=== PATIENT | female | born 1980 | race Caucasian/White ===

== ENCOUNTER 2025-03-31 01:52 | Emergency (ER) | payer SELFPAY ==
[2025-03-31 01:52] VITALS: BP 119/62; PULSE 81; RESP 13; TEMP 37.1; O2SAT 99; BMI 26.6
[2025-03-31 02:34] LABS: Add Manual Diff / Slide Review NO; Basophils Absolute Auto 0 /uL (0-100); Basophils Percent Auto 0.8 % (0-2); Eosinophils Absolute Auto 100 /uL (0-450); Eosinophils Percent Auto 4.4 % (2-4); Hematocrit 33.4 % (36-46); Hemoglobin 11.5 g/dL (12.0-16.0); Lymphocytes Absolute Auto 1100 /uL (1100-4500); Lymphocytes Percent Auto 37.3 % (25-40); Mean Corpuscular HGB Conc 34.5 % (30-36); Mean Corpuscular Hemoglobin 31.4 PG (26-34); Mean Corpuscular Volume 91.1 fL (80-100); Monocytes Absolute Auto 300 /uL (0-900); Monocytes Percent Auto 11.3 % (3-14); Neutrophils Absolute Auto 1400 /uL (1500-7000); Neutrophils Percent Auto 46.2 % (50-75); Platelet Count 99 X10^3/uL (150-400); Red Blood Cell Count 3.67 X10^6/uL (4.0-5.2); Red Cell Distribution Width 14.2 % (11.6-14.8); White Blood Cell Count 2.9 X10^3/uL (4.5-11.0)
[2025-03-31 02:50] LABS: Acetaminophen < 10 ug/mL (10-30); Alanine Aminotransferase 45 IU/L (<35); Albumin 3.4 g/dL (3.5-5.0); Albumin Globulin Ratio 1.3 (1.0-2.8); Alkaline Phosphatase 135 U/L (38-126); Aspartate Aminotransferase 62 IU/L (14-36); BUN Creatinine Ratio 21.2 (6-22); Bilirubin Total 1.3 mg/dL (0.2-1.3); Blood Urea Nitrogen 11 mg/dL (7-17); Calcium 8.6 mg/dL (8.4-10.2); Carbon Dioxide 26 mmol/L (22-32); Chloride 110 mmol/L (98-107); Estimated Glomerular Filt Rate > 60 mL/min (>60); Ethanol (ETOH) < 10 mg/dL; Globulin 2.7 g/dL (1.7-4.1); Glucose 110 mg/dL (70-99); HEMOLYSIS < 15 (0-50); Potassium 4.2 mmol/L (3.4-5.1); Salicylate < 1.0 mg/dL (<20); Sodium 138 mmol/L (137-145); Total Protein 6.1 g/dL (6.3-8.2)
[2025-03-31 03:09] LABS: UR Morphine/Opiate cutoff 300 Negative (Negative); Ur Creatinine Normal (Normal); Ur Specific Gravity Normal (Normal); Urine Amphetamines Negative (Negative); Urine Cocaine Negative (Negative); Urine Tetrahydrocannabinol Positive (Negative); Urine pH Normal (Normal)
[2025-03-31 03:10] LABS: Urine Barbiturates Negative (Negative); Urine Benzodiazepines Negative (Negative); Urine MDMA Negative (Negative); Urine Methadone Negative (Negative); Urine Methamphetamines Positive (Negative); Urine Oxycodone Negative (Negative); Urine Phencyclidine Negative (Negative); Urine Tricyclic Antidepressant Negative (Negative)
[2025-03-31 03:14] LABS: Pregnancy Test Urine Negative (Negative)
[2025-03-31 03:20] LABS: TSH w/ Reflex to FT4 3.73 uIU/mL (0.47-4.68)
--- NOTE | 2025-03-31 03:57 | ED_ITS ---
HPI - Psych <Jb Mcclelland MD - Last Filed: 03/31/25 16:30> General Chief Complaint: Psychiatric Symptoms Stated Complaint: SI Time Seen by Provider: 03/31/25 02:35 Source: patient Mode of arrival: EMS History of Present Illness HPI Narrative: 44-year-old female arrival by ambulance with suicidal ideation by report, would not offer any history when asked by me why she is here, seems to deny active thoughts of hurting herself, seems to deny thoughts of hurting others, seems to nod yes that she would like some kind of help but does not seem to provide any other information about what help she is seeking. Triage information mentions that she is homeless and having suicidal thoughts. No known ingestions, unclear if there was any drug use. No injuries known. Related Data Allergies Allergy/AdvReac Type Severity Reaction Status Date / Time No Known Drug Allergies Allergy Verified 03/31/25 02:22 Patient History <Jb Mcclelland MD - Last Filed: 03/31/25 16:30> Social History Smoking Status: Current some day smoker Smoking Status: Current some day smoker tobacco type: cigarettes Alcohol type: beer Exam <Jb Mcclelland MD - Last Filed: 03/31/25 16:30> Narrative Exam Narrative: GENERAL: Well-developed patient, in mild distress. HEAD: Atraumatic. Normocephalic. EYES: Pupils equal round and reactive. Extraocular motions intact. No scleral icterus. No injection or drainage. ENT: Nose without bleeding, purulent drainage. Throat without erythema, tonsillar hypertrophy or exudate. Airway patent. NECK: Trachea midline. Non tender CARDIOVASCULAR: Regular rate and rhythm, systolic murmur 3/6 best left upper sternal border, no gallops, or rubs. RESPIRATORY: Clear to auscultation. Breath sounds equal bilaterally. No wheezes, rales, or rhonchi. GASTROINTESTINAL: Abdomen soft, non-tender, nondistended. EXTREMITIES: No edema or joint tenderness. BACK: Nontender without deformity or crepitance. No flank tenderness. NEURO: Arousable, not particularly cooperative with examination, no obvious facial droop, moves extremities spontaneously but not to command. SKIN: No rash or erythema of visible areas Initial Vital Signs Initial Vital Signs: Vital Signs Temperature 98.7 F 03/31/25 01:52 Pulse Rate 81 03/31/25 01:52 Respiratory Rate 13 03/31/25 01:52 Blood Pressure 119/62 03/31/25 01:52 Pulse Oximetry 99 03/31/25 01:52 Oxygen Delivery Method Room Air 03/31/25 01:52 <Caroline John DO - Last Filed: 03/31/25 16:12> Initial Vital Signs Initial Vital Signs: Vital Signs Temperature 98.7 F 03/31/25 01:52 Pulse Rate 81 03/31/25 01:52 Respiratory Rate 13 03/31/25 01:52 Blood Pressure 119/62 03/31/25 01:52 Pulse Oximetry 99 03/31/25 01:52 Oxygen Delivery Method Room Air 03/31/25 01:52 Course <Jb Mcclelland MD - Last Filed: 03/31/25 16:30> Orders Ordered: ED Orders 03/31/25 02:20 Acetaminophen Stat Complete Blood Count AUTO DIFF Stat Comprehensive Metabolic Panel Stat Ethanol (ETOH) Stat Test Urine Stat Salicylate Stat TSH w/ Reflex to FT4 Stat Urine Culture Stat Urine Drug Screen, Rapid Stat Urine Microscopic Stat 03/31/25 02:24 Consult to [facility] [place] - Conservation Engineer Routine Vital Signs Vital signs: Vital Signs - 8 hr 03/31/25 11:38 03/31/25 12:22 Pulse Rate 80 76 Respiratory Rate 16 16 Blood Pressure 129/67 136/76 Pulse Oximetry 100 97 Oxygen Delivery Method Room Air Room Air <Caroline John DO - Last Filed: 03/31/25 16:12> Orders Ordered: ED Orders 03/31/25 02:20 Acetaminophen Stat Complete Blood Count AUTO DIFF Stat Comprehensive Metabolic Panel Stat Ethanol (ETOH) Stat Test Urine Stat Salicylate Stat TSH w/ Reflex to FT4 Stat Urine Culture Stat Urine Drug Screen, Rapid Stat Urine Microscopic Stat 03/31/25 02:24 Consult to [facility] - Conservation Engineer Routine Vital Signs Vital signs: Vital Signs - 8 hr 03/31/25 11:38 03/31/25 12:22 Pulse Rate 80 76 Respiratory Rate 16 16 Blood Pressure 129/67 136/76 Pulse Oximetry 100 97 Oxygen Delivery Method Room Air Room Air MDM - Psych <Jb Mcclelland MD - Last Filed: 03/31/25 16:30> Lab Data Attestation: I reviewed the patient's lab results. 03/31/25 02:20 03/31/25 02:20 Labs: Lab Results 03/31/25 Range/Units 02:20 WBC 2.9 L (4.5-11.0) X10^3/uL RBC 3.67 L (4.0-5.2) X10^6/uL Hgb 11.5 L (12.0-16.0) g/dL Hct 33.4 L (36-46) % MCV 91.1 (80-100) fL MCH 31.4 (26-34) PG MCHC 34.5 (30-36) % RDW 14.2 (11.6-14.8) % Plt Count 99 L (150-400) X10^3/uL Neut % (Auto) 46.2 L (50-75) % Lymph % (Auto) 37.3 (25-40) % [place] % (Auto) 11.3 (3-14) % Eos % (Auto) 4.4 H (2-4) % Baso % (Auto) 0.8 (0-2) % Neut # (Auto) 1400 L (0674-4303) /uL Lymph # (Auto) 1100 (2446-9385) /uL [place] # (Auto) 300 (0-900) /uL Eos # (Auto) 100 (0-450) /uL Baso # (Auto) 0 (0-100) /uL Sodium 138 (137-145) mmol/L Potassium 4.2 (3.4-5.1) mmol/L Chloride 110 H (98-107) mmol/L Carbon Dioxide 26 (22-32) mmol/L BUN 11 (7-17) mg/dL Creatinine 0.52 (0.52-1.04) mg/dL Estimated GFR > 60 (>60) mL/min BUN/Creatinine Ratio 21.2 (6-22) Glucose 110 H (70-99) mg/dL Calcium 8.6 (8.4-10.2) mg/dL Total Bilirubin 1.3 (0.2-1.3) mg/dL AST 62 H (14-36) IU/L ALT 45 H (<35) IU/L Alkaline Phosphatase 135 H (38-126) U/L Total Protein 6.1 L (6.3-8.2) g/dL Albumin 3.4 L (3.5-5.0) g/dL Globulin 2.7 (1.7-4.1) g/dL Albumin/Globulin Ratio 1.3 (1.0-2.8) TSH 3.73 (0.47-4.68) uIU/mL Urine RBC None seen (0-5/HPF) Urine WBC None seen (0-5/HPF) Ur Squamous Epith Cells 5-10 /hpf H (0-5/HPF) Amorphous Sediment 2+ Urine Bacteria None seen (None) Vol Urine Centrifuged 10ml (spun) Urine Test Negative (Negative) Salicylates < 1.0 (<20) mg/dL U Opiates 300ng/mL cut Negative (Negative) Ur Oxycodone Screen Negative (Negative) Urine Methadone Screen Negative (Negative) Acetaminophen < 10 (10-30) ug/mL Ur Barbiturates Screen Negative (Negative) U Tricyclic Antidepress Negative (Negative) Ur Phencyclidine Scrn Negative (Negative) Ur Amphetamines Screen Negative (Negative) U Methamphetamines Scrn Positive H (Negative) Ur MDMA Scrn (Ecstasy) Negative (Negative) U Benzodiazepines Scrn Negative (Negative) Urine Cocaine Screen Negative (Negative) U Marijuana (THC) Screen Positive H (Negative) Urine pH Normal (Normal) Urine Specific [place] Normal (Normal) Ethyl Alcohol < 10 ( - 10) mg/dL Ur Creatinine Normal (Normal) Urine Dip Bedside Urine Glucose Negative Bedside Urine Bilirubin - Negative Bedside Urine Ketone - Negative Urine Specific [place] 1.010 Bedside Urine Occult Blood - Negative Bedside Urine pH 7.5 Bedside Urine Protein - Negative Bedside Urine Urobilinogen +/- 1mg Bedside Urine Nitrite - Negative Bedside Urine Leukocytes - Negative Esterase MDM Narrative Medical decision making narrative: 44-year-old female with triage nursing information relaying suicidal ideation, was not forthcoming with any history with me. Screening labs unremarkable, hCG negative, Tylenol and salicylate negative, ethanol negative. UDS pending. customer services supervisor consult when available later this morning. 0700, signed out to Dr John 0730 Dr. John, patient signed out to me by Dr. Mcclelland I have seen evaluated patient myself currently sleeping waiting for social work for disposition Blood work has been reviewed positive for methamphetamine and marijuana, mild leukopenia with WBC of 2.9 platelets are 99 hemoglobin hematocrit stable, chloride slightly elevated 110 no other significant electrolyte abnormality, liver enzymes slightly elevated but non concerning at this time TSH 3.73 Patient evaluated by social work, does not meet involuntary criteria has been given resources and a bus pass. Patient contracts for safety At discharge patient got extremely verbally abusive and aggressive. Security escorted her out police were ultimately called and reports were made. <Caroline Alvaro, DO - Last Filed: 03/31/25 16:12> Lab Data Labs: Lab Results 03/31/25 Range/Units 02:20 WBC 2.9 L (4.5-11.0) X10^3/uL RBC 3.67 L (4.0-5.2) X10^6/uL Hgb 11.5 L (12.0-16.0) g/dL Hct 33.4 L (36-46) % MCV 91.1 (80-100) fL MCH 31.4 (26-34) PG MCHC 34.5 (30-36) % RDW 14.2 (11.6-14.8) % Plt Count 99 L (150-400) X10^3/uL Neut % (Auto) 46.2 L (50-75) % Lymph % (Auto) 37.3 (25-40) % [place] % (Auto) 11.3 (3-14) % Eos % (Auto) 4.4 H (2-4) % Baso % (Auto) 0.8 (0-2) % Neut # (Auto) 1400 L (4390-1611) /uL Lymph # (Auto) 1100 (4002-1514) /uL [place] # (Auto) 300 (0-900) /uL Eos # (Auto) 100 (0-450) /uL Baso # (Auto) 0 (0-100) /uL Sodium 138 (137-145) mmol/L Potassium 4.2 (3.4-5.1) mmol/L Chloride 110 H (98-107) mmol/L Carbon Dioxide 26 (22-32) mmol/L BUN 11 (7-17) mg/dL Creatinine 0.52 (0.52-1.04) mg/dL Estimated GFR > 60 (>60) mL/min BUN/Creatinine Ratio 21.2 (6-22) Glucose 110 H (70-99) mg/dL Calcium 8.6 (8.4-10.2) mg/dL Total Bilirubin 1.3 (0.2-1.3) mg/dL AST 62 H (14-36) IU/L ALT 45 H (<35) IU/L Alkaline Phosphatase 135 H (38-126) U/L Total Protein 6.1 L (6.3-8.2) g/dL Albumin 3.4 L (3.5-5.0) g/dL Globulin 2.7 (1.7-4.1) g/dL Albumin/Globulin Ratio 1.3 (1.0-2.8) TSH 3.73 (0.47-4.68) uIU/mL Urine RBC None seen (0-5/HPF) Urine WBC None seen (0-5/HPF) Ur Squamous Epith Cells 5-10 /hpf H (0-5/HPF) Amorphous Sediment 2+ Urine Bacteria None seen (None) Vol Urine Centrifuged 10ml (spun) Urine Test Negative (Negative) Salicylates < 1.0 (<20) mg/dL U Opiates 300ng/mL cut Negative (Negative) Ur Oxycodone Screen Negative (Negative) Urine Methadone Screen Negative (Negative) Acetaminophen < 10 (10-30) ug/mL Ur Barbiturates Screen Negative (Negative) U Tricyclic Antidepress Negative (Negative) Ur Phencyclidine Scrn Negative (Negative) Ur Amphetamines Screen Negative (Negative) U Methamphetamines Scrn Positive H (Negative) Ur MDMA Scrn (Ecstasy) Negative (Negative) U Benzodiazepines Scrn Negative (Negative) Urine Cocaine Screen Negative (Negative) U Marijuana (THC) Screen Positive H (Negative) Urine pH Normal (Normal) Urine Specific [place] Normal (Normal) Ethyl Alcohol < 10 ( - 10) mg/dL Ur Creatinine Normal (Normal) Urine Dip Bedside Urine Glucose Negative Bedside Urine Bilirubin - Negative Bedside Urine Ketone - Negative Urine Specific [place] 1.010 Bedside Urine Occult Blood - Negative Bedside Urine pH 7.5 Bedside Urine Protein - Negative Bedside Urine Urobilinogen +/- 1mg Bedside Urine Nitrite - Negative Bedside Urine Leukocytes - Negative Esterase MDM Narrative Medical decision making narrative: 44-year-old female with triage nursing information relaying suicidal ideation, was not forthcoming with any history with me. Screening labs unremarkable, hCG negative, Tylenol and salicylate negative, ethanol negative. customer services supervisor consult when available later this morning. 0700, signed out to Dr oJhn 0730 Dr. John, patient signed out to me by Dr. Mcclelland I have seen evaluated patient myself currently sleeping waiting for social work for disposition Blood work has been reviewed positive for methamphetamine and marijuana, mild leukopenia with WBC of 2.9 platelets are 99 hemoglobin hematocrit stable, chloride slightly elevated 110 no other significant electrolyte abnormality, liver enzymes slightly elevated but non concerning at this time TSH 3.73 Patient evaluated by social work, does not meet involuntary criteria has been given resources and a bus pass. Patient contracts for safety At discharge patient got extremely verbally abusive and aggressive. Security escorted her out police were ultimately called and reports were made. Discharge Plan Departure Patient Disposition: Home Clinical Impression: Suicidal ideation, Heart murmur, Methamphetamine use Instructions: DI for Suicidal Ideation-Adult Activity Restrictions/Additional Instructions: *You have been diagnosed with suicidal ideation *What to do: If you are feeling suicidal or having suicidal thoughts: Call: Suicide Hotline: 004 Visit: www.[email or web address].org Text: 746 *Continue to take medications as directed *Follow up with your primary care provider in 2-3 days or call [phone] *Return to ER if you should have any new, worsening or concerning symptoms Stand Alone Forms: Patient Portal/API/Survey
[2025-03-31 05:36] LABS: Amorphous Sediment Urine 2+; Bacteria Urine None Seen; RBC Urine None Seen (0-5/HPF); Squamous Epithelial Cell Urine 5-10 /HPF (0-5/HPF); Urine Volume 10mL (spun); WBC Urine None Seen (0-5/HPF)
[2025-03-31 06:28] VITALS: BP 136/67; PULSE 84; RESP 16; O2SAT 97
[2025-03-31 06:30] VITALS: TEMP 36.7
[2025-03-31 11:38] VITALS: BP 129/67; PULSE 80; RESP 16; O2SAT 100
[2025-03-31 12:22] VITALS: BP 136/76; PULSE 76; RESP 16; O2SAT 97
--- NOTE | 2025-03-31 12:46 | PC.NURSE ---
Pt has been sleeping in rm 13 all morning. Mariana BRNADT met with pt and gave her resources for food and housing etc. Pt was DC'd by this RN at 1222. Pt remained in bed for about 20 min. Pt was roused and advised that she was cleared to go. Pt got agitated. Stood from bed abruptly. Started screaming tits up motherfuckers and all you nurses deserve to be shot and reported that she is going to come back and shoot this place up. Pt calling Dr John a bitch multiple times. Security was called. Helped escort pt out of building. Non-Emergent police report was made with Officer Martha. EMS was also notified. Pt's legal name is Kelin, however goes by Shira
--- NOTE | 2025-03-31 12:51 | CM.SWNOTE ---
ED AUTOMOTIVE DRIVABILITY TECHNICIAN Assessment Note Patient is 44 y/o female who presented to the ED last night due to concern for self harm statements. Patient denied plan upon arrival. Patient slept in the ED for the last 9 hours. Per EMS, it is reported that patient is currently houseless and residing on the streets, was found at [facility]. It was reported to EMS by dispatch that patient has hx of violence and aggression towards law enforcement. Patient's toxicology is positive for Methamphetamine and Marijuana. AUTOMOTIVE DRIVABILITY TECHNICIAN enters room to meet with patient, patient presents as fatigued. Patient presents as A/Ox4, patient states she is tired. When asked about SI initially patient states I'm just tired, I've been sleepy. Patient states she is houseless and living on the streets. Patient states that she was staying in [place] and they told her to come to [place] [facility]. AUTOMOTIVE DRIVABILITY TECHNICIAN discusses [facility] but states that they are closed over the weekend. When asked patient states she has connected with [facility], [facility], [facility] and [facility] and continues to state that they told her to come to [place]. Patient states that she has a [employer] bus pass. When asked, patient denies HI and SI. Patient denies interest for treatment or resources regarding substance use. AUTOMOTIVE DRIVABILITY TECHNICIAN provides resources for housing and basic needs. AUTOMOTIVE DRIVABILITY TECHNICIAN discusses the [facility] in [place] as an option, patient indicates agreement and understanding. Patient is medically clear for discharge, RN presents discharge paperwork to patient and patient continues to sleep. RN re-enters room and patient raises her voice and makes verbal threats to the ED staff and the hospital. Security is contacted for assistance. It is reported by clinical courier that patient will be trespassed if she returns to the hospital unless she is checking in as a patient. Patient did not take resources provided and discharge paperwork upon leaving the ED. Plan: patient discharged upon medical clearance to the community. ANGELA Shah
== END 2025-03-31 12:45 | disposition home or self-care (01) ==
PROVIDERS: Emergency Medicine; Emergency Provider Emergency Medicine
DX: R45.851 Suicidal ideations (principal); R01.1 Cardiac murmur, unspecified; F15.90 Other stimulant use, unspecified, uncomplicated
CPT/HCPCS: 80053; 80305; 80320; 80329; 81003; 81015; 81025; 84443; 85025; 87086; 99283; 99284; G0480